=== PATIENT | female | born 1985 | race Caucasian/White ===

== ENCOUNTER 2018-05-23 08:00 | Emergency (ER) | payer SELFPAY ==
--- NOTE | 2018-05-23 09:16 | ER ---
Nurse's Notes [facility] Name: Imelda Villalta Age: 33 yrs Sex: Female : 1985 Arrival Date: 05/23/2018 Time: 08:06 Bed 18 Private MD: Diagnosis: Acute sinusitis Presentation: 05/23 08:10 Presenting complaint: Productive cough with green sputum, sore throat, sneezing, body hb aches and fever x 1 week. Denies N/V/D. TMAX 102. Transition of care: patient was not received from another setting of care. Resp Distress? No respiratory distress is noted at this time. Onset of symptoms was May 16, 2018. Risk Assessment: Do you want to hurt yourself or someone else? Patient reports no desire to harm self or others. Care prior to arrival: None. 08:10 Method Of Arrival: Ambulatory hb 08:10 Acuity: JAMAL 3 hb 09:37 Initial Sepsis Screen: Does the patient meet any 2 criteria? No. Patient's initial sepsis screen is negative. Does the patient have a suspected source of infection? No. Patient's initial sepsis screen is negative. 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 - Social history:: Smoking status: Patient/guardian denies using tobacco. - Ebola Screening: : No symptoms or risks identified at this time. Screenin:13 Abuse screen: Denies threats or abuse. Denies injuries from another. Nutritional hb screening: No deficits noted. Tuberculosis screening: No symptoms or risk factors identified. Fall Risk None identified. Assessment: 08:21 General: Appears in no apparent distress. comfortable, Behavior is calm, cooperative, ch appropriate for age. Pain: Complains of pain in face, generalized Pain currently is 5 out of 10 on a pain scale. Cardiovascular: Denies chest pain, Heart tones S1 S2 present Capillary refill < 3 seconds in bilateral fingers toes. Respiratory: Airway is patent Respiratory effort is even, unlabored, Breath sounds are clear bilaterally. 08:58 Reassessment: Patient appears in no apparent distress at this time. No changes from previously documented assessment. Patient and/or family updated on plan of care and expected duration. Pain level reassessed. Patient is alert, oriented x 3, equal unlabored respirations, skin warm/dry/pink. 09:36 Reassessment: Patient appears in no apparent distress at this time. Patient and/or ch family updated on plan of care and expected duration. Pain level reassessed. Patient is alert, oriented x 3, equal unlabored respirations, skin warm/dry/pink. Patient states feeling better. Patient states symptoms have improved. Vital Signs: 08:12 BP 106 / 90; Pulse 80; Resp 16; Temp 98.1; Pulse Ox 100% on R/A; Pain 7/10; hb 08:58 BP 105 / 85; Pulse 61; Resp 14; Temp 97.9; Pulse Ox 99% on R/A; Pain 7/10; ch 09:36 BP 109 / 61; Pulse 58; Resp 14; Temp 97.9; Pulse Ox 99% on R/A; Pain 7/10; ch ED Course: 08:06 Patient arrived in ED. hb 08:12 Stacey Conley, RN is Primary Nurse. ch 08:12 Triage completed. hb 08:13 Arm band placed on right wrist. hb 08:22 [facility]. kb 08:22 Juan Wills MD is Attending Physician. kb 08:27 Flu Sent. mh5 08:27 Strep Sent. mh5 08:28 Patient has correct armband on for positive identification. Call light in reach. Warm mh5 blanket given. 08:28 Flu and/or RSV swab sent to lab. Strep swab sent to lab. mh5 08:58 Pulse ox on. NIBP on. ch 09:36 No apparent distress. Resting quietly. ch 09:36 No provider procedures requiring assistance completed. Patient did not have IV access during this emergency room visit. Administered Medications: No medications were administered Outcome: 09:15 Discharge ordered by . kb 09:36 Discharged to home ambulatory, with family. ch 09:36 Condition: improved 09:36 Discharge instructions given to patient, family, Instructed on discharge instructions, follow up and referral plans. medication usage, Demonstrated understanding of instructions, follow-up care, medications, Prescriptions given X 1. 09:37 Patient left the ED. Signatures: Niru Jerry, GIOVANNI-C GIOVANNI-Stacey Allen, RN RN ch Cami Segovia, BARBIE RN Kandi Dean [facility]
--- NOTE | 2018-05-23 09:16 | EDPHYS ---
Physician Documentation [facility] Name: Imelda Villalta Age: 33 yrs Sex: Female : 1985 Arrival Date: 05/23/2018 Time: 08:06 Bed 18 Private MD: ED Physician Juan Wills HPI: 05/23 09:12 This 33 yrs old Female presents to ER via Ambulatory with complaints of kb Fever, Congestion, Sore Throat. 09:12 The patient presents with sore throat. The patient describes throat pain as constant. kb Onset: The symptoms/episode began/occurred 8 day(s) ago. Severity of symptoms: At their worst the symptoms were moderate, in the emergency department the symptoms are unchanged. Modifying factors: The symptoms are alleviated by nothing, the symptoms are aggravated by nothing. Associated signs and symptoms: Pertinent positives: cough, fever, rhinorrhea, Sore throat. The patient has not experienced similar symptoms in the past. The patient has not recently seen a physician. 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 - Social history:: Smoking status: Patient/guardian denies using tobacco. - Ebola Screening: : No symptoms or risks identified at this time. ROS: 09:11 Cardiovascular: Negative for chest pain, palpitations, and edema, Abdomen/GI: Negative kb for abdominal pain, nausea, vomiting, diarrhea, and constipation, Back: Negative for injury and pain, : Negative for injury, bleeding, discharge, and swelling, MS/Extremity: Negative for injury and deformity, Skin: Negative for injury, rash, and discoloration, Neuro: Negative for headache, weakness, numbness, tingling, and seizure. 09:11 Constitutional: Positive for fever, Negative for body aches, chills, fatigue, malaise, poor PO intake, weight loss. 09:11 ENT: Positive for rhinorrhea, sinus congestion, sinus pain, sore throat. 09:11 Respiratory: Positive for cough, Negative for dyspnea on exertion, hemoptysis, orthopnea, pleurisy, shortness of breath, sputum production, wheezing. Exam: 09:12 Constitutional: This is a well developed, well nourished patient who is awake, alert, kb and in no acute distress. Head/Face: Normocephalic, atraumatic. ENT: Nares patent. No nasal discharge, no septal abnormalities noted. Tympanic membranes are normal and external auditory canals are clear. Oropharynx with no redness, swelling, or masses, exudates, or evidence of obstruction, uvula midline. Mucous membranes moist. Neck: Trachea midline, no thyromegaly or masses palpated, and no cervical lymphadenopathy. Supple, full range of motion without nuchal rigidity, or vertebral point tenderness. No Meningismus. Chest/axilla: Normal chest wall appearance and motion. Nontender with no deformity. No lesions are appreciated. Cardiovascular: Regular rate and rhythm with a normal S1 and S2. No gallops, murmurs, or rubs. Normal PMI, no JVD. No pulse deficits. Respiratory: Lungs have equal breath sounds bilaterally, clear to auscultation and percussion. No rales, rhonchi or wheezes noted. No increased work of breathing, no retractions or nasal flaring. Abdomen/GI: Soft, non-tender, with normal bowel sounds. No distension or tympany. No guarding or rebound. No evidence of tenderness throughout. Skin: Warm, dry with normal turgor. Normal color with no rashes, no lesions, and no evidence of cellulitis. MS/ Extremity: Pulses equal, no cyanosis. Neurovascular intact. Full, normal range of motion. Neuro: Awake and alert, GCS 15, oriented to person, place, time, and situation. Cranial nerves II-XII grossly intact. Motor strength 5/5 in all extremities. Sensory grossly intact. Cerebellar exam normal. Normal gait. 09:12 Head/face: Sinus tenderness, that is moderate, is located over the right frontal sinus and left frontal sinus. Vital Signs: 08:12 BP 106 / 90; Pulse 80; Resp 16; Temp 98.1; Pulse Ox 100% on R/A; Pain 7/10; hb 08:58 BP 105 / 85; Pulse 61; Resp 14; Temp 97.9; Pulse Ox 99% on R/A; Pain 7/10; ch 09:36 BP 109 / 61; Pulse 58; Resp 14; Temp 97.9; Pulse Ox 99% on R/A; Pain 7/10; ch MDM: 08:22 Patient medically screened. kb 09:11 Data reviewed: vital signs, nurses notes. Data interpreted: Pulse oximetry: on room air kb is 99 %. Interpretation: normal. Counseling: I had a detailed discussion with the patient and/or guardian regarding: the historical points, exam findings, and any diagnostic results supporting the discharge/admit diagnosis, lab results, the need for outpatient follow up, a family practitioner, to return to the emergency department if symptoms worsen or persist or if there are any questions or concerns that arise at home. 05/23 08:22 Order name: Strep; Complete Time: 08:56 kb 05/23 08:22 Order name: Flu; Complete Time: 08:59 kb 05/23 08:52 Order name: Throat Culture EDMS Administered Medications: No medications were administered Disposition: 12:19 Co-signature as Attending Physician, Juan Wills MD. Disposition: 05/23/18 09:15 Discharged to Home. Impression: Acute sinusitis. - Condition is Stable. - Discharge Instructions: Sinusitis, Adult, [id number]. - Prescriptions for Prednisone 20 mg Oral Tablet - take 1 tablet by ORAL route once daily for 5 days; 5 tablet. - Medication Reconciliation Form, Thank You Letter, Antibiotic Education, Prescription Opioid Use, Work release form form. - Follow up: Emergency Department; When: As needed; Reason: Worsening of condition. Follow up: Private Physician; When: 2 - 3 days; Reason: Recheck today's complaints, Continuance of care, Re-evaluation by your physician. Signatures: Dispatcher [employer] EDMS Niru Jerry, GIOVANNI-C GIOVANNI-Stacey Allen, BARBIE RN Cami Wiggins RN RN hb Starr, Gregory, MD MD Corrections: (The following items were deleted from the chart) 09:37 09:15 05/23/2018 09:15 Discharged to Home. Impression: Acute sinusitis. Condition is ch Stable. Forms are Medication Reconciliation Form, Thank You Letter, Antibiotic Education, Prescription Opioid Use. Follow up: Emergency Department; When: As needed; Reason: Worsening of condition. Follow up: Private Physician; When: 2 - 3 days; Reason: Recheck today's complaints, Continuance of care, Re-evaluation by your physician. kb
== END 2018-05-23 09:37 | disposition home or self-care (01) ==
LOC: ER 08:00
DX: J01.90 Acute sinusitis, unspecified (principal)
CPT/HCPCS: 87070; 87081; 87804; 99283